=== PATIENT | female | born 1995 | race Caucasian/White ===

== ENCOUNTER → 2018-02-14 14:06 | Outpatient (CLI) | payer OTHER, BC, SELFPAY ==
[2018-02-14 14:55] LABS: Hematocrit 38.3 % (37-47); Hemoglobin 13.2 g/dl (12.0-15.0); Mean Corp Hgb Conc 34.5 g/gl (32-36); Mean Corpuscular Hgb 31.8 pg (27.0-32.0); Mean Corpuscular Volume 92.3 fL (81-99); Mean Platelet Vol. 9.3 fl (6.2-12.0); Platelet Count 224 K/mm3 (150-450); RBC Distribution Width CV 12.3 % (11.6-14.6); RBC Distribution Width SD 40.3 fl (35.1-43.9); Red Blood Count 4.15 M/mm3 (4.2-5.4); White Blood Count 7.9 K/mm3 (4.4-11.0)
[2018-02-14 14:57] LABS: Scan Indicated on CBC? Y/N NO
== END ==
PROVIDERS: Visit Provider Obstetrics & Gynecology
DX: R53.83 Other fatigue (principal)
CPT/HCPCS: 36415; 84443; 85027

== ENCOUNTER → 2018-09-13 17:57 | Outpatient (CLI) | payer OTHER, BC, SELFPAY ==
[2018-09-13 18:01] LABS: Mucous, Urine 0 SEEN /hpf (<or=2+)
[2018-09-13 18:11] LABS: Color, Urine Yellow (Yellow); Glucose, Dipstick Normal (Normal); Ketone-Dipstick Negative (Negative); Leukocyte Esterase-Dipstick 500 /ul (Negative); Nitrite-Dipstick Positive (Negative); Occult Blood-Urine 50 /ul (Negative); Protein-Dipstick Negative (Negative); Urine Clarity Sl. Cloudy (Clear); Urine Urobilinogen 4 mg/dl (Normal); Urine pH 6.5 (5.0 - 8.0)
[2018-09-13 18:16] LABS: Urine Bilirubin Dipstick 3 mg/dL (Negative)
[2018-09-13 18:23] LABS: Red Blood Cells-Urine 0-5 SEEN /hpf (0-5); Squamous Epithelial Cells - UA 0-5 SEEN /hpf (5-10); White Blood Cells 25-50 SEEN /hpf (0-5)
[2018-09-13 18:24] LABS: Bacteria RARE /hpf (None Seen)
== END ==
PROVIDERS: Referring Provider Physician Assistant Surgical; Visit Provider Physician Assistant Surgical
DX: R10.9 Unspecified abdominal pain (principal)
CPT/HCPCS: 81001; 87086; 87088

== ENCOUNTER → 2019-01-18 09:00 | Outpatient (CLI) | payer BC, SELFPAY ==
[2019-01-18 11:37] VITALS: BMI 28.4
[2019-01-20 08:44] LABS: Bacteria 0 SEEN /hpf (None Seen); Mucous, Urine 0 SEEN /hpf (<or=2+)
[2019-01-20 10:41] LABS: Color, Urine Yellow (Yellow); Glucose, Dipstick Normal (Normal); Ketone-Dipstick Negative (Negative); Leukocyte Esterase-Dipstick 25 /ul (Negative); Nitrite-Dipstick Positive (Negative); Occult Blood-Urine 25 /ul (Negative); Protein-Dipstick 15 mg/dl (Negative); Urine Clarity Sl. Cloudy (Clear); Urine Urobilinogen 8 mg/dl (Normal)
[2019-01-20 10:46] LABS: Urine Bilirubin Dipstick 3 mg/dL (Negative)
[2019-01-20 10:53] LABS: Red Blood Cells-Urine 0-5 SEEN /hpf (0-5); Squamous Epithelial Cells - UA 0-5 SEEN /hpf (5-10); White Blood Cells 0-5 SEEN /hpf (0-5)
== END ==
PROVIDERS: Referring Provider Physician Assistant; Visit Provider Physician Assistant
DX: R30.0 Dysuria (principal)
CPT/HCPCS: 81001; 87086; 87088

== ENCOUNTER → 2019-01-28 16:01 | Outpatient (CLI) | payer OTHER, BC, SELFPAY ==
[2019-01-18 11:37] VITALS: BMI 28.4
[2019-01-28 16:31] LABS: hCG Titer Quant., Serum 11 mIU/mL (<9 non-preg)
== END ==
PROVIDERS: Visit Provider Obstetrics & Gynecology
DX: O20.0 Threatened abortion (principal); N91.2 Amenorrhea, unspecified
CPT/HCPCS: 36415; 84702

== ENCOUNTER → 2019-02-28 15:13 | Outpatient (CLI) | payer OTHER, BC, SELFPAY ==
[2019-01-18 11:37] VITALS: BMI 28.4
[2019-02-28 16:37] LABS: Estradiol 35.2 pg/mL; Follicle Stimulating Hormone 6.1 mIU/mL; Free T3 2.3 pg/mL (2.18-3.98); Prolactin 14.3 ng/mL; T4 Free Direct 1.07 ng/dL (0.76-1.46); Thyroid Stim Hormone (TSH) 0.48 uIU/mL (0.358-3.74)
[2019-02-28 16:58] LABS: Progesterone Level 0.47 ng/mL (See Comment)
[2019-03-02 06:57] LABS: DHEA Sulfate 264.9 ug/dL (110.0-431.7)
[2019-03-11 17:50] LABS: 17-Hydroxyprogesterone 32 ng/dL (.)
== END ==
PROVIDERS: Visit Provider Obstetrics & Gynecology
DX: O02.81 Inappropriate change in quantitative human chorionic gonadotropin (hCG) in early pregnancy (principal); N96 Recurrent pregnancy loss
CPT/HCPCS: 36415; 82533; 82627; 82670; 83001; 83498; 84144; 84146; 84270; 84403; 84439; 84443; 84481; 82626

== ENCOUNTER → 2019-03-17 14:05 | Outpatient (CLI) | payer OTHER, BC, SELFPAY ==
[2019-01-18 11:37] VITALS: BMI 28.4
--- NOTE | 2019-03-17 14:09 | US_ITS ---
STUDY: ULTRASOUND TRANSVAGINAL CLINICAL: Female, 23 years old. PCOS TECHNIQUE: Transvaginal COMPARISON: None. FINDINGS: Normal uterine size measuring 7.1 x 5.5 x 3.5 cm in maximal craniocaudal dimension. There are no myometrial masses. Normal endometrial thickness measuring 9 mm. There are no endometrial masses, and there is no fluid in the endometrial cavity. Normal uterine cervix. Normal left ovary, measuring 2.4 x 1.3 x 1.4 cm. There are multiple follicles without a dominant cyst. Normal right ovary, measuring 4.1 x 2.3 x 3.8 cm. There are multiple follicles without a dominant cyst. There is mild free fluid in the pelvis. US/Pelvic (Non ) IMPRESSION: Mild pelvic fluid. Electronically Signed: Sean Powell DO at 22:48 EDT Tel [phone], Service support ,
--- NOTE | 2019-03-17 14:27 | US_ITS ---
STUDY: ULTRASOUND TRANSVAGINAL CLINICAL: Female, 23 years old. PCOS TECHNIQUE: Transvaginal COMPARISON: None. FINDINGS: Normal uterine size measuring 7.1 x 5.5 x 3.5 cm in maximal craniocaudal dimension. There are no myometrial masses. Normal endometrial thickness measuring 9 mm. There are no endometrial masses, and there is no fluid in the endometrial cavity. Normal uterine cervix. Normal left ovary, measuring 2.4 x 1.3 x 1.4 cm. There are multiple follicles without a dominant cyst. Normal right ovary, measuring 4.1 x 2.3 x 3.8 cm. There are multiple follicles without a dominant cyst. There is mild free fluid in the pelvis. US/Transvaginal Non- IMPRESSION: Mild pelvic fluid. Electronically Signed: Sean Powell DO at 22:48 EDT Tel [phone], Service support ,
[2019-03-17 15:48] LABS: Follicle Stimulating Hormone 3.5 mIU/mL; Luteinizing Hormone 12.9 mIU/mL
[2019-03-18 14:15] LABS: Estradiol 134.8 pg/mL
== END ==
PROVIDERS: Referring Provider Obstetrics & Gynecology; Visit Provider Obstetrics & Gynecology
DX: E28.2 Polycystic ovarian syndrome (principal); N96 Recurrent pregnancy loss
CPT/HCPCS: 36415; 76830; 76856; 82670; 83001; 83002; 84144; 84403; 93976

== ENCOUNTER → 2019-05-23 14:27 | Outpatient (CLI) | payer OTHER, BC, SELFPAY ==
[2019-01-18 11:37] VITALS: BMI 28.4
[2019-05-23 19:07] LABS: Chlamydia Trachomatis by PCR Negative (Negative); Neisserai gonorrhoeae by PCR Negative (Negative); Probe Check PASS; Sample Adequacy Control PASS; Specimen Processing Control PASS
[2019-06-02 15:16] LABS: HPV Reflexed? NOT INDICATED; HPV Rflx Negative
== END ==
PROVIDERS: Visit Provider Obstetrics & Gynecology
DX: Z12.4 Encounter for screening for malignant neoplasm of cervix (principal); Z11.3 Encounter for screening for infections with a predominantly sexual mode of transmission
CPT/HCPCS: 87491; 87591; 88175; G0145

== ENCOUNTER 2019-12-27 18:00 | Inpatient (IN) | payer OTHER, BC, SELFPAY ==
[2019-01-18 11:37] VITALS: BMI 28.4
[2019-12-27 16:13] VITALS: BMI 31.7
[2019-12-27] MEDS: Lactated Ringers 1,000 ML 200 ML IV ×2 (18:35→23:41)
[2019-12-27] MEDS: Lactated Ringers 500 ML 999 ML IV (18:39)
[2019-12-27 18:56] LABS: Absolute Lymphocyte Count 1.02 X10^3/uL (0.83-4.51); Absolute Neutrophil Count 9.3 X10^3/uL (2.0-7.7); Basophil# 0.02 X10^3/uL; Basophil% 0.2 % (0-1); Eosinophil# 0.02 X10^3/uL; Eosinophils% 0.2 % (0-5); Hematocrit 35.3 % (37-47); Hemoglobin 11.2 g/dL (12.0-15.0); Lymphocyte # 1.02 X10^3/ul (4.0); Lymphocyte % 9.1 % (19-41); Mean Corp Hgb Conc 31.7 g/dL (32-36); Mean Corpuscular Hgb 27.5 pg (27.0-32.0); Mean Corpuscular Volume 86.5 fL (81-99); Monocyte# 0.68 X10^3/uL; Monocyte% 6.1 % (0-10); NRBC Flagged by Analyzer 0 % (0-5); Neutrophil # 9.34 X10^3/uL (2.7-7.7); Neutrophil % 83.7 % (47-70); Platelet Count 222 K/mm3 (150-450); RBC Distribution Width CV 13.8 % (11.6-14.6); RBC Distribution Width SD 42.8 fl (35.1-43.9); Red Blood Count 4.08 M/mm3 (4.2-5.4); White Blood Count 11.2 K/mm3 (4.4-11.0)
[2019-12-27] MEDS: Ondansetron 4 MG/2 ML Vial IV (20:09)
[2019-12-27] MEDS: 0.9% Saline Lock 10 ML Syringe IV (20:09)
[2019-12-27] MEDS: fentaNYL-bupivacaine (epidural) 100 ML BAG EPIDURAL (21:02)
--- NOTE | 2019-12-28 00:21 | HP.PCM_ITS ---
History and Physical Date of Ad[place]: 12[place]27/[place] [facility] [facility] [place] - H[place]ORY AND PHYSICAL (12/28/2019) Name: ANUEL FRANKLIN OB Physician: HANH 's Physician: UNDECIDED ...................................................................... : 1995 Age: 24 Address: [address] [place] [address] Phone: H) [phone] (O) [phone] Insurance Carrier: [employer] [id number] Emergency Contact: ASHANTI SANTOS [phone] ...................................................................... Anuel is a 24yo at 39w4d gestation by L=12w2d US who presented to L&D yesterday afternoon c/o contractions. She states that they woke her up yesterday morning around 8:00 AM occurring approximately every 7-10 minutes; she continued to labor at home until they were about 5 minutes apart, and then proceeded to the hospital. After a two-hour triage period her cervix changed from 3.5/80/-2 to 4.0/80/- per RN exam and she was emily every 4-5 minutes; she was admitted to L&D and started on prophylactic antibiotics for positive group B status; she has continued to labor spontaneously over the afternoon and evening. She experienced SROM for clear fluid at 2105 last evening; She is currently comfortable with an epidural,and was 9.5/90/0 by RN exam at 2308 last evening. She reports mild pressure with contractions, none between. FHTs have been Cat 1 and 2 throughout labor and reassuring. Patient has a history of two early trimester losses and was on Prometrium during the first trimester of this . She has a history of depression and gestational hyperthyroidism. Her blood type is A positive, and has NKA. Final KENDRA: 12/31/19 By Ultrasound: PARITY: (G-Total Pregnancies P-Fullterm,Premature,Induced AB,Spont AB, Ectopics, Multiple,Living) KENDRA CONFIRMATION: By LMP: 03/26/19 Final KENDRA: 12/31/19 OB PROBLEM LIST: 2 SAB's early 2018 Concerned about pp depression, as her mother experienced this, and pt has a hx of depression Declines msAFP and CF testing EPDS = 12 Epidural planned Gestational hyperthyroidism Office and childbirth classes discussed. ALLERGIES: No Known Allergies MEDICATIONS: 28 mg-800 mcg tablet 1 PO QD Prometrium 100 mg capsule two po q hs until 12 wk EGA selenium 200 mcg tablet As Directed SOCIAL HISTORY: Smoking - Never Alcohol Use - drinks occasionally Diet - balanced Diet Lifestyle - Exercise - active Employer - [employer] Job Description - part time receptionist Illicit Drug Use - denies use of street drugs Sexual Activity - Residence - lives with Place of - [place], [place] Hours Worked - 40 Spouse-Sig Other Name - Kael Spouse-Sig Other Occupation - [employer] Spouse-Sig Other Phone No - [phone] PRIOR DELIVERY HISTORY DEL DATE GEST LAB WT LB WT OZ TYPE ANES LABOR TX 01 Dec 19 5 0 0 0 Sab None No 11 Jan 19 8 0 0 0 Sab None No ANTEPARTUM FLOW CHART VISIT GE RTC FU F F MN U U DATE WK MD WKS HT PN HR M SS BP ED WT MN GL D EF ST __ ____ ___ __ __ ___ __ __ __ ___ __ __ __ ___ __ 04 Dec CH 1 38 V + + 130/76 1+ 191 tr - cl TH hi Nov KW 1 38 V + + 126/78 1+ 195 - - ft hi Nov KW 1 36 + + 100/80 1+ 192 - - Nov CH 1 36 V + + 100/76 0 190 - - Nov SHM 1 35 V + + 110/60 0 187 - - Oct SHM 2 31 V + + 120/78 1+ 185 - - Nov 17 SHM 2 29 ? + + 122/72 sl 182 - - Oct 16 SHM 2 28 ? + + 120/70 0 177 tr - Sep 11 SHM 4 24 ? + + 128/54 0 173 - - Aug 08 SHM 4 20 + 0 106/70 0 169 - - Jul 04 SHM 4 + + 110/80 0 164 - - 02 Jun 30 SHM 4 12 + 0 126/80 0 161 - - ANTEPARTUM NOTE(S): Dec 23 2019: reviewed FM, SROM, and labor Dec 17 2019: Feeling well Dec 11 2019: feeling well. Dec 03 2019: feeling well. GBS today. Nov 26 2020: see note Nov 05 2019: none Oct 22 2019: Oct 08 2019: GCT done today Sep 10 2019: see prog note Aug 15 2019: doiing well, comp u/s today Jul 16 2019: feeling some anxiety and sadness. Jun 20 2019: tolerable nausea, NOB and u/s today COMPREHENSIVE ANTEPARTUM NOTE(S): Dec 23 2019: Routine PNV. FM+. FHR 148. Wishes to have SVE today and membrane sweeping if possible. SVE still unchanged and unable to sweep. Wants elective IOL at 40 weeks. To call with regular UC every 5 minutes for 1 hour or with ROM, bleeding or decreased FM. To return in 1 week for routine PNV. - Dec 17 2019: Anuel reporting good FM. GBS positive. She has been reading on line and is now worried baby can get this thru . Reviewed this was a vaginal culture and she will be given ABX in labor to take care of this. Baby will not be affected and baby will not get this with nursing. Began having short runs of ctx's over this past weekend, but none today. No leaking fluid. No spotting. She is also asking about taking probiotics and advised YES ok to take. Recommendations for probiotic given. kb Dec 17 2019: Feeeling well; reports active FM; denies UCs, VB, LOF; VE per patient request ft/th /hi , soft, posterior; discussed safety measures, warning signs, s/s Labor, when to call/come in; RTO 1 week for PNV - KVW Dec 12 2019: Feeling well; reports active FM; denies UCs, VB, LOF; GBS positive, discussed implications of this today, timing of arrival to L in labor and receivin antibiotic therapy; discussed warning signs, s/s Labor, when to call/come in; RTO 1 week for PNV - KVW Dec 08 2019: H taken to OB. tkg Dec 03 2019: Routine PNV. Reports +FM. FHR 142. GBS collected today. Has no other questions or concerns. Talked about membrane sweeping after 38 weeks because wants to avoid induction, but doesnt want to go past 40 weeks. Discussed still elective IOL at that point and would need cervical check to determine what IOL would look like. Discussed CNM care and okay with delivery. Wants to meet KW at next visit. Reviewed to call for decreased FM, ROM, bleeding or regular UC. Will start weekly visits, to return in 1 week. - Nov 26 2019: Anuel is here for visit. She relates that she area on labia that becomes larger and sore for the last couple months. She feels that it is less bothersome today. She is due next week for GBS and will evaluate then if desires or can have Dr POLANCO look at it today. Declines exam since not too bothersome today and pelvic exam for next week. She is encouraged to consider Influenza and Tdap vaccines. She will research and consider. FM, SROM, and labor reviewed. LMT Nov 05 2019: Anuel is here for an OB visit. She has some edema in hands and feet. BP 120/78 and urine came back as --. Good movement. MLK Nov 05 2019: PTL, FM precautions. Discussed Peds selection, preeclampsia precautions. Oct 22 2019: Anuel is doing well. Good FM. Slight edema in hands -- has to remove her rings w/lotion. Cautioned if this becomes harder, to just take them off, so she can avoid having them cut off. kbm Oct 08 2019: Encouraged Tdap and Influenza vaccine. Reviewed FM, PROM, and PTL. Feeling well and no complaints. LMT Oct 08 2019: PTL, ROM, FM precautions. Plans NuvaRing . Sep 10 2019: Anuel is here today for her visit. Patient states that she has been having mild cramping. She states that she thinks maybe they are drew wilhelm contractions or round ligament pain. Reviewed both. She states sometimes she notes the cramping when she urinates. Long dip done in office leuk, nitrite, urobilinogen, and protein-neg, pH-5, blood-neg, sp gravity-1005, ketones, bilirubin and glucose-neg. jlb Sep 10 2019: Discussed Trenton Wilhelm, labor analgesia. Aug 15 2019: Anxiety improved with relaxation breathing techniques, exercise. Will continue to monitor. Drew Wilhelm with full bladder. Pt reassured. Anatomy scan wnl, FEMALE. Jun 25 2019: Rh positive, Rubella immune Jun 20 2019: US c/w dates, KENDRA 12/31/18. d/c prometrium this week. Reviewed labs for draw. Jun 20 2019: Anuel is here at 12 w 2 d for her NOB visit, she is a A2 with an KENDRA of 12/31/2019. She is accompanied today by her , Kael, and they both seem pleased to have had the US and to have heard the heart beat. Anuel has had two early SAB's in December and January of 2019, and states that she feels relieved to have had US today. Past history updated. Delivery at [facility] is planned, with an epidural, and she will breastfeed. Office childbirth ed and classes discussed and encouraged; they seem receptive to both. Anuel has been taking Prometrium, and will d/c this as discussed today with Dr. Gwyn Lazaro. She reports nausea, and morning emesis most days, but feels that NVP are starting to improve. Reviewed measures that m ay help minimize nausea, including small frequent meals with protein included throughout the day, adequate water hydration of at least one gallon per 24 hours, Unisom at bedtime, Vitamin B6 50 mg twice a day, and trying carb rich foods right away in the morning. She takes and tolerates well an OTC vitamin that contains DHA. Office practice patterns reviewed, including labs that will be collected today. Contacting the office after hours, danger signs/emergencies to report, round ligament ain, reporting s/s of a UTI, and common OTC medications approved/not approved for use during reviewed. Anuel is a life long non-smoker, and denies use of drugs or ETOH. Genetic Screening form completed. She declines msAFP and CF testing, consent signed a such. Anuel shares a hx of depression/anxiety, and that she had been on medication for depression; she states that she feels that she is doing well without medication at this time. EPDS = 12. Discussed that if she feels that she needs more help with depression/anxiety, that she should feel free to call the office; she states that she understands and will do this as needed. Anuel states that her biggest stressor right now is work, but she does well with stress while not at work. She shares a concern that since her mother experienced pp depression, that she will as well; she will discuss this concern with Dr. Gwyn Lazaro as she gets closer to her KENDRA. Anuel states that she eats a generally well balanced diet when not nauseated, and has been working on increasing her water intake. Water and dietary needs reinforced, including recommended weight agin, caloric needs, limiting empty calories, and limiting caffeine to one cup a day. Printed guide for food safety provided with review. She walks her dog every day and plans to continue to do this. Kegel exercises reviewed. Lifting restrictions discussed. Anuel states that she understands all information provided during the NOB visit, and states that she has no questions following same. To [facility] draw station for labs. AW May 24 2019: GC, chlamydia NEG. EB May 23 2019: Anuel is here for missed menses appt. She reports LMP 5/8, +UPT today in office, approx EDC 12/31/19. She is taking PNV and Prometrium. Feeling tired, mild nausea, and constipation. Reviewed all OTC meds to help with these minor discomforts. Educational materials are provided and reviewed. Discussed increased po fluids, adding approx 300 extra calories per day, and 30 minutes of exercise at least 5 times per week. Hx of 2 early SAB and taking Prometrium as prescribed. Pap and cultures will be done today. LMT Apr 04 2019: Anuel is here today for her follow up appointment. . Patient with h/o 2 SAB and attempting . Patient has labs done 02/28/2019, and 03/17/2019 with u/s same day. Patient is here to review lab results in correlation to u/s. Patient states that lmp is 03/26/2019. jlb Feb 28 2019: Anuel presents here today as follow-up for attempting as previously followed by Olivier. 23 y.o. G 2 P 0 AB 2 non-smoker with regular menses and LMP of 02-25-19 lasting approximately 7 days. Reports [facility] had told her to call with start of her next menses and have labs drawn, as well as track her temperature and cervical mucous. Denies new breakfast hostess concerns at this time. Medication list up-dated. TL Feb 11 2019: Anuel is here today for follow up appointment as she is concerned that she has had tow miscarriages in the past two months. Patient states that she had positive upt's at home and then came in for SPT in office when she started with bleeding. Patient's most recent SAB was 01/27/2019. Patient denies any bleeding today. H/o irregular menses. jlb REVIEW OF SYSTEMS: GENERAL - Denies fever, or chills SKIN - Denies rash, new skin lesions, or change in moles EYES - Denies blurred vision, or change in visual acuity EARS - Denies ear pain, or difficulty hearing NOSE - Denies nasal congestion, discharge, or bleeding MOUTH - Denies sore throat, or difficulty swallowing NECK - Denies pain or swelling RESPIRATORY - Denies shortness of breath, cough, wheezing CARDIOVASCULAR - Denies palpitations, chest pain, orthopnea, PND, peripheral edema, syncope or claudication GASTROINTESTINAL - Denies nausea, vomiting, diarrhea, constipation, Denies abdominal pain, melena and or bright red blood GENITOURINARY - Denies dysuria, frequency of urination, urgency, or hesitancy MUSCULOSKELETAL - Denies joint or muscle pain, or back pain NEUROLOGICAL - Denies localized numbness, weakness, or tingling PSYCHIATRIC - Denies depression, anxiety, substance abuse or suicide attempts ENDOCRINE - Denies heat or cold intolerance, weight loss or gain, increasing thirst HEMATO-IMMUNOLOGIC - Denies easy bruising, bleeding, oral ulcerations or recurrent infections GENETICS SCREENING: Age 35+ years: No Thalassemia: No Neural Tube Defect: No Down Syndrome: No CIARA-SACHS: No Sickle Cell Disease: No Hemophilia: No Musc. Dystrophy: No Cystic Fibrosis: No-declines screening [place] Chorea: No Mental Retardation: No Fragile X: No Other genetic: No Other defects: No SABs/still births: No Drugs since LMP: No INFECTION HISTORY: High risk AIDS: No High risk Hepatitis: No Exposed to TB: No Exposed to Herpes: No Rash/viral illness since LMP: No History of STD: No MENSTRUAL HISTORY: *Menses Amount/Duration: 7 daysMenses Regularity: irregularFrequency: monthlyMenarche (Age Onset): 12* PAST SUMMARY: PARITY: 1. Total Pregnancies............ 3 2. Full Term Pregnancies........ 0 3. Premature.................... 0 4. Abortions - Induced.......... 0 5. Abortions - Spontaneous...... 2 6. Ectopics..................... 0 7. Multiple Births.............. 0 8. Living Children.............. 0 PAST #1: Date of :.................. 12/20/18 Gestation Weeks:................ 5 Length of labor(hours):......... 0 Sex:............................ Weight-lbs:............... 0 Weight-oz:................ 0 Type of Delivery:............... Sab Type of Anesthesia:............. None Place of Delivery:.............. none Treatment of Labor?:.... No Comment: DATE APPROX, NO D+C PAST #2: Date of :.................. 01/27/19 Gestation Weeks:................ 8 Length of labor(hours):......... 0 Sex:............................ Weight-lbs:............... 0 Weight-oz:................ 0 Type of Delivery:............... Sab Type of Anesthesia:............. None Place of Delivery:.............. none Treatment of Labor?:.... No Comment: NO D+C Labs for : ANUEL FRANKLIN since 04/05/2019 ORDER DATEIN DESCRIPTION VALUE UNITS RANGE A+ COMMENT STREP GP B NOELLE 12/03/19 STREP GP B NOELLE Positive Negative A Centers for Disease Control and Prevention (CDC) and [place] Congress of Obstetricians and Gynecologists (ACOG) guidelines for prevention of group B streptococcal (GBS) disease specify co-collection of a vaginal and rectal swab specimen to maximize sensitivity of GBS detection. Per the CDC and ACOG, swabbing both the lower vagina and rectum substantially increases the yield of detection compared with sampling the vagina alone. . Penicillin G, ampicillin, or cefazolin are indicated for intrapartum prophylaxis of GBS colonization. Reflex susceptibility testing should be performed prior to use of clindamycin only on GBS isolates from penicillin-allergic women who are considered a high risk for anaphylaxis. Treatment with vancomycin without additional testing is warranted if resistance to clindamycin is noted. Reviewed by KATIE JACOB. DIABETES 1-HR SCREEN 10/08/19 GESTATIONAL DIABETES SCREEN 92 mg/dL 65-139 According to ADA, a glucose threshold of >139 mg/dL after 50-gram load identifies approximately 80% of women with gestational diabetes mellitus, while the sensitivity is further increased to approximately 90% by a threshold of >129 mg/dL. CBC WITH DIFFERENTIAL/PLATELET 10/08/19 WBC 11.6 x10E3/uL 3.4-10.8 H RBC 3.72 x10E6/uL 3.77-5.28 L HEMOGLOBIN 11.8 g/dL 11.1-15.9 HEMATOCRIT 34.5 % 34.0-46.6 MCV 93 fL 79-97 MCH 31.7 pg 26.6-33.0 MCHC 34.2 g/dL 31.5-35.7 RDW 12.3 % 12.3-15.4 PLATELETS 233 x10E3/uL 150-450 NEUTROPHILS 78 % Not Estab. LYMPHS 12 % Not Estab. MONOCYTES 8 % Not Estab. EOS 1 % Not Estab. BASOS 0 % Not Estab. IMMATURE CELLS NEUTROPHILS (ABSOLUTE) 9.1 x10E3/uL 1.4-7.0 H LYMPHS (ABSOLUTE) 1.4 x10E3/uL 0.7-3.1 MONOCYTES(ABSOLUTE) 0.9 x10E3/uL 0.1-0.9 EOS (ABSOLUTE) 0.1 x10E3/uL 0.0-0.4 BASO (ABSOLUTE) 0.0 x10E3/uL 0.0-0.2 IMMATURE GRANULOCYTES 1 % Not Estab. IMMATURE GRANS (ABS) 0.1 x10E3/uL 0.0-0.1 NRBC HEMATOLOGY COMMENTS: Reviewed by KATIE WRITTEN AUTHORIZATION 06/20/19 WRITTEN AUTHORIZATION Written Authorization Received. Authorization received from SIGNATURE ON FILE 06-26-2019 Logged by Myrna Brown TRIIODOTHYRONINE (T3), FREE 06/20/19 TRIIODOTHYRONINE (T3), FREE 3.7 pg/mL 2.0- 4.4 THYROXINE (T4) FREE, DIRECT, S 06/20/19 T4,FREE(DIRECT) 1.36 ng/dL 0.82-1.77 Reviewed by KATIE VITAMIN D, 25-HYDROXY 06/20/19 VITAMIN D, 25-HYDROXY 31.2 ng/mL 30.0-100.0 Vitamin D deficiency has been defined by the [place] of [employer] and an Endocrine Society practice guideline as a level of serum 25-OH vitamin D less than 20 ng/mL (1,2). The Endocrine Society went on to further define vitamin D insufficiency as a level between 21 and 29 ng/mL (2). 1. IOM ([place] of [employer]). 2010. Dietary reference intakes for calcium and D. [place]: The National Academies Press. 2. Saad MF, Matias NC, Brittni CRAMER, et al. Evaluation, treatment, and prevention of vitamin D deficiency: an Endocrine Society clinical practice guideline. JCEM. 2010; 96(4):1911-30. HCV ANTIBODY 06/20/19 HEP C VIRUS AB <0.1 s/co ratio 0.0-0.9 Negative: < 0.8 Indeterminate: 0.8 - 0.9 Positive: > 0.9 . The CDC recommends that a positive HCV antibody result be followed up with a HCV Nucleic Acid Amplification test (917307). CBC/D/PLT+RPR+UA+RH+ABO+RUB... 06/20/19 TSH 0.242 uIU/mL 0.450-4.500 L HBSAG SCREEN Negative Negative RPR Non Reactive Non Reactive RUBELLA ANTIBODIES, IGG 4.77 index Immune >0.99 Non-immune <0.90 Equivocal 0.90 - 0.99 Immune >0.99 ABO GROUPING A RH FACTOR Positive Please note: Prior records for this patient's ABO / Rh type are not available for additional verification. ANTIBODY SCREEN Negative Negative HIV SCREEN 4TH GENERATION WRFX Non Reactive Non Reactive WBC 8.9 x10E3/uL 3.4-10.8 RBC 4.22 x10E6/uL 3.77-5.28 HEMOGLOBIN 13.1 g/dL 11.1-15.9 HEMATOCRIT 37.8 % 34.0-46.6 MCV 90 fL 79-97 MCH 31.0 pg 26.6-33.0 MCHC 34.7 g/dL 31.5-35.7 RDW 13.1 % 12.3-15.4 PLATELETS 273 x10E3/uL 150-450 NEUTROPHILS 68 % Not Estab. LYMPHS 21 % Not Estab. MONOCYTES 10 % Not Estab. EOS 1 % Not Estab. BASOS 0 % Not Estab. NEUTROPHILS (ABSOLUTE) 6.1 x10E3/uL 1.4-7.0 LYMPHS (ABSOLUTE) 1.8 x10E3/uL 0.7-3.1 MONOCYTES(ABSOLUTE) 0.9 x10E3/uL 0.1-0.9 EOS (ABSOLUTE)w 0.1 x10E3/uL 0.0-0.4 BASO (ABSOLUTE) 0.0 x10E3/uL 0.0-0.2 IMMATURE GRANULOCYTES 0 % Not Estab. IMMATURE GRANS (ABS) 0.0 x10E3/uL 0.0-0.1 SPECIFIC GRAVITY 1.005 1.005-1.030 PH 6.0 5.0-7.5 URINE-COLOR Yellow Yellow APPEARANCE Clear Clear WBC ESTERASE Negative Negative PROTEIN Negative Negative/Trace GLUCOSE Negative Negative KETONES Negativew Negative OCCULT BLOOD Negative Negative BILIRUBIN Negative Negative UROBILINOGEN,SEMI-QN 0.2 mg/dL 0.2-1.0 NITRITE, URINE Negative Negative MICROSCOPIC EXAMINATION Microscopic not indicated and not performed. [id number] 7+ALC-UNBUND 06/20/19 AMPHETAMINES, URINE Negative ng/mL Jrvrpg=4257 Amphetamine test includes Amphetamine and Methamphetamine. BARBITURATE Negative ng/mL Nfsqpu=238 BENZODIAZEPINES Negative ng/mL Rhjsqn=444 CANNABINOID Negative ng/mL Cutoff=50 COCAINE (METAB.) Negative ng/mL Zdgyfm=913 OPIATES Negative ng/mL Greirt=243 Opiate test includes Codeine and Morphine only. PHENCYCLIDINE Negative ng/mL Cutoff=25 ETHANOL, URINE Negative % Cutoff=0.020 Reviewed by KATIE CBC/D/PLT+RPR+UA+RH+ABO+RUB... 06/20/19 IMMATURE CELLS NRBC HEMATOLOGY COMMENTS: Reviewed by KATIE HPV RFLX 05/23/19 NOTE Original Ordering Provider: Hemalatha Freitas HPV RFLX Negative Reviewed by HEMALATHA PAP TEST I-G 05/23/19 NOTE Original Ordering Provider: Hemalatha Freitas DIAGN . NEGATIVE FOR INTRAEPITHELIAL LESION OR MALIGNANCY. ADEQ . Satisfactory for evaluation. Endocervical and/or squamous metaplastic cells (endocervical component) are present. PERFORM . Mariama Hickey Baller Tender (ASCP) TEST METHOD . This liquid based ThinPrep(R) pap test was screened with the use of an image guided system. COMM . . PAPSMR . The Pap smear is a screening test designed to aid in the detection of premalignant and malignant conditions of the uterine cervix. It is not a diagnostic procedure and should not be used as the sole means of detecting cervical cancer. Both false-positive and false-negative reports do occur. Reviewed by HEMALATHA SHAFFER/CINTHIA [facility] BY PCR 05/23/19 NOTE Original Ordering Provider: Hemalatha CROCKETTAM [facility] PCR Negative Negative NG BY PCR Negative Negative Reviewed by LIZZ PROVIDER SIGNATURE ( REQUIRED) PHYSICAL EXAMINATION General Appearence: 24 yo female in no acute distress Vital Signs: AF, VSS Heart: RRR without rubs or gallops Lungs: CTA x 2 Breasts: deferred Abdomen: gravid Pelvis: Cervix: 9.5/90/0 by RN exam at 2308 12/27/19 Presentation: cephalic Fetus: Size: AGA Movement: present Heart: 125 baseline, minimal to moderate variability, +accelerations, occasional variable decelerations Impression: 24yo at 39w4d gestation by L=12w2d US Gestational hyperthyroidism Group B positive A Positive Cat 2 FHTs Plan: Continue to labor down Continue GBS prophylaxis Anticipate vaginal delivery
[2019-12-28] MEDS: Mag Hydrox/Al Hydrox/Simeth 30 ML UDC PO (00:24)
[2019-12-28] MEDS: fentaNYL-bupivacaine (epidural) 100 ML BAG EPIDURAL (01:09)
[2019-12-28] MEDS: Oxytocin 30 units/NS 500 ml 30 UNITS/500 ML IV.SOLN 999 UNITS IV (02:35)
--- NOTE | 2019-12-28 04:16 | OP.PCM_ITS ---
Vaginal Delivery Maternal Presentation: Active Labor Pt presented to L&D in active labor yesterday afternoon after laboring at home Amniotic Membrane Rupture Type: Spontaneous Rupture of Membrane time: 210412/27/19 Amniotic Fluid Description: Clear Final KENDRA Source: US <20 weeks Date of Procedure: 12/28/19 Pre-Operative Diagnosis: Labor Post-Operative Diagnosis: Surgery/ Procedure Performed: Spontaneous Vaginal Delivery Type of Anesthesia: Epidural Description of Procedure: CTSP when she was C/C/+2; pushed well and delivered a vigorous female over a 2nd degree perineal laceration; nuchal cord x 1 noted, shoulders delivered through; as body was delivered, cord was noted to be wrapped around abdomen x 1 and right thigh x 1; cord unwrapped from around infant, placed on maternal abdomen, dried, stimulated and bulb suctioned, APGARs 9/9; after a 60 second delay, cord was clamped x 2, and cut by FOB under CNM supervision; placenta delivered spontaneously, Pugh mechanism, intact, 3- vessel cord, central insertion; 2nd degree perineal laceration repaired with 3-0 Vicryl, good hemostasis obtained; EBL 200 Lap sponge, raytec, instrument and sharp counts correct x 2 with RN Presentation: Vertex, JIM Placental Delivery Description: Spontaneous Placenta Disposition: [facility] Cord Vessel Description: 3 Vessels Cord Entanglement: Around neck x 1, tight - around neck x 1, tight, around abdomen, around r leg Estimated Blood Loss: 200 Infant A gender: Male Episiotomy Description: None Laceration: Midline, Perineal Extension/lac, 2nd degree Medications given after delivery: IV Pitocin
--- NOTE | 2019-12-28 04:42 | DCINST_ITS ---
Discharge Diet: No Restrictions Discharge Activity: Return to Normal Activity, No Restrictions Return to work on:: 02/07/20 May resume sexual activity in: 6-8 weeks Weight Bearing Status: Weight bearing as tolerated Lifting Restrictions: Nothing heavier than the baby for two weeks Additional Activity Instructions:: Minimize cooking, cleaning, shopping or long car trips for two weeks; try to get at least 8 hours sleep in 24 hours for the first two weeks; sleep when the baby sleeps Call your doctor if you observe: Fever of 101 or Higher, Inability to urinate, Inability to have a bowel movement, Using more than one pad per hour, Shortness of breath, Dizziness, Chest pain, Increased palpitations (irregular heartbeat), Calf discomfort, Uncontrolled pain Additional Instructions: If you experience any of the following, contact your healthcare provider. * Bleeding that soaks a pad every hour for 2 hours * Fever 100.4 or higher * Unrelieved incision or abdominal pain * Swelling, redness, discharge or bleeding from your incision or episiotomy site * Your incision begins to separate * Problems urinating (including inability to urinate or burning while urinating). * Visual changes * Severe headache * Flu-like symptoms * Pain or redness in one of both of your breasts * Pain, warmth, tenderness or swelling in your legs, especially the calf area * Frequent nausea and vomiting * Symptoms of depression or anxiety If you experience any of the following, call 911 or go to the nearest Emergency Room. * Chest pain * Problems breathing * Seizure activity * Partial or complete paralysis of a body part, slurred speech, weakness or drooping of the face, or a sudden inability to walk or hold your balance Allergies/Adverse Reactions: Allergies No Known Allergies Allergy (Verified 12/27/19 16:14) Medications to take at Discharge Vits [Prenatabs FA ] 12/27/19 Selenium 12/27/19 Ferrous Sulfate 325 mg PO DAILY #30 tab 12/29/19 The following prescriptions were given: Ferrous Sulfate 325 mg PO DAILY #30 tab Transmission Status: Received by [id number] Please Follow Up With: Kaylynn Dejesus CNM When: in 6 weeks for your checkup Primary Care Physician: Care Physician,No Primary [Primary Care Provider] - Test Results: Test results from this visit will be discussed in further detail at your follow- up appointment, if applicable.
[2019-12-28 08:01] VITALS: BP 98/60; PULSE 94; RESP 16; TEMP 36.9; O2SAT 97
[2019-12-28] MEDS: Ibuprofen 600 MG Tablet PO ×2 (08:38→14:42)
[2019-12-28] MEDS: Acetaminophen 500 MG Tablet 1000 MG PO (10:52)
[2019-12-28] MEDS: Dibucaine 30 GM Tube 1 APPLIC TOPICAL (10:52)
[2019-12-28] MEDS: Senna/Docusate Sodium 1 Tablet PO (10:52)
[2019-12-28 12:09] VITALS: BP 111/66; PULSE 88; RESP 16; TEMP 36.8
[2019-12-28 17:08] VITALS: BP 118/73; PULSE 70; RESP 16; TEMP 36.9
[2019-12-28 20:50] VITALS: BP 113/64; PULSE 82; RESP 18; TEMP 36.4
[2019-12-29 00:10] VITALS: BP 113/74; PULSE 79; RESP 18; TEMP 36.4
[2019-12-29] MEDS: Ibuprofen 600 MG Tablet PO ×2 (00:28→08:40)
[2019-12-29 03:01] VITALS: BP 106/73; PULSE 71; RESP 18; TEMP 36.2
[2019-12-29 07:18] LABS: Hematocrit 29.6 % (37-47); Hemoglobin 9.3 g/dL (12.0-15.0); Mean Corp Hgb Conc 31.4 g/dL (32-36); Mean Corpuscular Hgb 27.7 pg (27.0-32.0); Mean Corpuscular Volume 88.1 fL (81-99); Mean Platelet Vol. 9.7 fl (6.2-12.0); Platelet Count 181 K/mm3 (150-450); RBC Distribution Width CV 13.9 % (11.6-14.6); RBC Distribution Width SD 43.7 fl (35.1-43.9); Red Blood Count 3.36 M/mm3 (4.2-5.4); White Blood Count 10.6 K/mm3 (4.4-11.0)
[2019-12-29 07:40] VITALS: BP 116/70; PULSE 78; RESP 18; TEMP 36.5
--- NOTE | 2019-12-29 08:13 | NURSING ---
Pt reports feelings of anxiety. Also reports her mother had PPD. Will discuss with marriage and family social worker.
--- NOTE | 2019-12-29 08:29 | PCM.PN.OB ---
Subjective: Pain well controlled, tolerating diet, passing flatus; well; spouse bedside and supportive; considering Rabia for contraception Objective: AVSS Breasts filling, nipples atraumatic Fundus firm, midline, u/1, lochia small 2nd degree perineal laceration well, approximated, minimal edema, no drainage, ecchymosis or erythema noted - Physical Exam Vitals/I&O's: Vital Signs Temp Pulse Resp BP Pulse Ox 97.7 F L 78 18 116/70 97 12/29/19 07:40 12/29/19 07:40 12/29/19 07:40 12/29/19 07:40 12/28/19 08:01 Oxygen Delivery Method Room Air Weight: 190 lb 11.198 oz Body Mass Index (BMI) 31.7 Intake and Output for Last 24 Hours 12/27/19 12/28/19 12/29/19 23:59 23:59 23:59 Intake Total 1521.66 / 1521.66 2330.00 / 2330.00 Output Total 2750 / 2750 Balance 1521.66 / 1521.66 -420.00 / -420.00 General: Alert, Oriented x3, Cooperative, No apparent distress HEENT: PERRLA, EOMI Oral: Moist Mucosa Neck: Supple Lungs: Clear to auscultation, Normal air movement Cardiovascular: Regular rate, Regular Rhythm Abdomen: Bowel Sounds Present, Soft, Non Tender, Non-Distended, Passing Flatus Extremities: No edema, Capillary Refill Less than 3 Seconds, No Calf Tenderness Skin: No rashes Musculoskeletal: No Tenderness to Palpation of Joints or Extremities Neurological: Cranial nerves II-XII grossly intact, Deep Tendon Reflexes 2+/4 and Symmetrical, Neuro grossly intact Psych/Mental Status: Normal Affect, Appropriate Laboratory Results 12/29/19 07:00: WBC 10.6, RBC 3.36 L, Hgb 9.3 L, Hct 29.6 L, MCV 88.1, MCH 27.7, MCHC 31.4 L, RDW Std Deviation 43.7, RDW Coeff of Mateusz 13.9, Plt Count 181, MPV 9.7 Current Medications Acetaminophen (Tylenol) 1,000 mg PO Q8H PRN PRN PRN Reason: Pain Score 1-3/ Last Admin: 12/28/19 10:52 Dose: 1,000 mg Documented by: Bisacodyl (Dulcolax) 10 mg RECTAL UD PRN PRN Reason: If no BM Dibucaine (Dibucaine) 1 applic TOPICAL TID PRN PRN; Protocol PRN Reason: Discomfort Last Admin: 12/28/19 10:52 Dose: 1 applic Documented by: Hydrocortisone (Hytone) 1 applic TOPICAL TID PRN PRN; Protocol PRN Reason: Discomfort Ibuprofen (Motrin) 600 mg PO Q6H PRN PRN PRN Reason: Pain Score 1-3/10 Last Admin: 12/29/19 00:28 Dose: 600 mg Documented by: Influenza Virus Vaccine Quadrival (Flucelvax /Fluzone ) 0.5 ml IM .ONCE ONE Stop: 12/29/19 10:01 Methylergonovine Maleate (Methergine) 0.2 mg IM X1 PRN PRN Reason: Excess bleeding/uterine atony Senna/Docusate Sodium (Senokot-S, Tessa-Colace) 1 - 2 tablet PO DAILY PRN PRN PRN Reason: Constipation Last Admin: 12/28/19 10:52 Dose: 1 tablet Documented by: Simethicone (Mylicon) 80 mg PO PCHS PRN PRN Reason: Indigestion/Stomach pain Medical Necessity - Tobacco Use Smoking Status: Never smoker Assessment/Plan All Active Problems (Last Reviewed 01/18/19 @ 11:37 by [place] Anthony) Cystitis (Acute) Assessment: 24yo G3 now [id number] delivered via at 39w4d gestation by L=12w2d US day #1, normal involution, normal course Mild anemia Plan: Discharge teaching completed Ferrous Sulfate, 325mg 1 PO dailuy Discharge home today if desired RTO 6 weeks for checkup
[2019-12-29] MEDS: Senna/Docusate Sodium 1 Tablet PO (08:40)
[2019-12-29 15:00] VITALS: BP 113/69; PULSE 69; RESP 18; TEMP 36.6
== END 2019-12-29 17:25 | disposition home or self-care (01) | DRG 807 ==
LOC: WPOUT 18:07 → WP 18:07
PROVIDERS: Admitting Provider Advanced Practice Midwife; Visit Provider Advanced Practice Midwife
DX: O99.824 Streptococcus B carrier state complicating childbirth (principal); O99.284 Endocrine, nutritional and metabolic diseases complicating childbirth; E05.80 Other thyrotoxicosis without thyrotoxic crisis or storm; O69.2XX0 Labor and delivery complicated by other cord entanglement, with compression, not applicable or unspecified; O69.1XX0 Labor and delivery complicated by cord around neck, with compression, not applicable or unspecified; O70.1 Second degree perineal laceration during delivery; O90.81 Anemia of the puerperium; D64.9 Anemia, unspecified; Z3A.39 39 weeks gestation of pregnancy; Z37.0 Single live birth
CPT/HCPCS: 59025; 59050; 85025; 85027; 86850; 86900; 86901; 99218; J7120; 90686; A4216; G0378; J2405

== ENCOUNTER 2021-12-29 10:35 | Outpatient (CLI) | payer BC, SELFPAY | END 2021-12-29 23:59 | disposition home or self-care (01) | PROVIDERS: Visit Provider Obstetrics & Gynecology | DX: N96 Recurrent pregnancy loss (principal) | CPT/HCPCS: 36415 ==

== ENCOUNTER 2022-01-24 14:29 | Outpatient (CLI) | payer BC, SELFPAY ==
[2022-01-24 15:33] LABS: T3 Total - Triiodothyronine 1.13 ng/mL (0.6-1.81); Vitamin D,25 Hydroxy 20.4 ng/mL
[2022-01-24 15:39] LABS: AST(SGOT) 9 U/L (15-37); Alanine Aminotransfer ALT/SGPT 19 U/L (13-56); Alkaline Phosphatase 66 U/L (45-117); Bilirubin, Direct 0.08 mg/dL (0.00-0.30); Free T3 2.8 pg/mL (2.18-3.98); Globulin 4.4 g/dL (2.2-4.2); Protein, Total 8.4 g/dL (6.4-8.2); T4 Free Direct 1.17 ng/dL (0.76-1.46); Thyroid Stim Hormone (TSH) 0.33 uIU/mL (0.358-3.74)
[2022-01-24 15:58] LABS: Hemoglobin A1c 4.7 % (3.8-5.6)
[2022-01-31 18:58] LABS: T3 Reverse 17.9 ng/dL (9.2-24.1)
== END 2022-01-24 23:59 | disposition home or self-care (01) ==
LOC: WOBLAB 14:30
PROVIDERS: Visit Provider Obstetrics & Gynecology
DX: E55.9 Vitamin D deficiency, unspecified (principal); N96 Recurrent pregnancy loss; E03.9 Hypothyroidism, unspecified; Z13.1 Encounter for screening for diabetes mellitus
CPT/HCPCS: 36415; 80076; 82306; 83036; 84439; 84443; 84480; 84481; 84482

== ENCOUNTER → 2022-04-11 | Outpatient (CLI) | payer BC, SELFPAY | END | disposition home or self-care (01) | PROVIDERS: Visit Provider Obstetrics & Gynecology | DX: N96 Recurrent pregnancy loss (principal); N91.1 Secondary amenorrhea | CPT/HCPCS: 36415 ==

== ENCOUNTER → 2022-06-13 | Outpatient (CLI) | payer BC, SELFPAY ==
[2022-06-13 19:33] LABS: hCG Titer Quant., Serum 12 mIU/mL (1-3)
== END | disposition home or self-care (01) ==
PROVIDERS: Visit Provider Obstetrics & Gynecology
DX: N96 Recurrent pregnancy loss (principal)
CPT/HCPCS: 36415; 84702

== ENCOUNTER → 2022-06-15 | Outpatient (CLI) | payer BC, SELFPAY ==
[2022-06-15 14:46] LABS: hCG Titer Quant., Serum 3 mIU/mL (1-3)
== END | disposition home or self-care (01) ==
LOC: WOBLAB 13:12
PROVIDERS: Visit Provider Student in an Organized Health Care Education/Training Program
DX: N96 Recurrent pregnancy loss (principal)
CPT/HCPCS: 36415; 84702

== ENCOUNTER → 2022-09-18 | Outpatient (CLI) | payer BC, SELFPAY ==
[2022-09-18 10:04] LABS: Absolute Lymphocyte Count 1.31 X10^3/uL (0.83-4.51); Absolute Neutrophil Count 3.9 X10^3/uL (2.0-7.7); Basophil# 0.03 X10^3/uL; Basophil% 0.5 % (0-1); Eosinophil# 0.12 X10^3/uL; Hematocrit 40.6 % (37-47); Hemoglobin 14.1 g/dL (12.0-15.0); Lymphocyte # 1.31 X10^3/ul (0.83-4.51); Lymphocyte % 21.8 % (19-41); Mean Corp Hgb Conc 34.7 g/dL (32-36); Mean Corpuscular Hgb 30.9 pg (27.0-32.0); Mean Platelet Vol. 8.7 fl (6.2-12.0); Monocyte# 0.59 X10^3/uL; Monocyte% 9.8 % (0-10); NRBC Flagged by Analyzer 0 % (0-5); Neutrophil # 3.93 X10^3/uL (2.7-7.7); Neutrophil % 65.4 % (47-70); Platelet Count 264 K/mm3 (150-450); RBC Distribution Width CV 12.5 % (11.6-14.6); RBC Distribution Width SD 40.9 fl (35.1-43.9); Red Blood Count 4.56 M/mm3 (4.2-5.4)
[2022-09-18 11:09] LABS: HIV - WCH Non-Reactive (Nonreactive); Hepatitis B Surface Antigen Non-Reactive (Nonreactive); Hepatitis C Antibody Non-Reactive (Nonreactive); Rubella IgG Reactive (Nonreactive); Syphilis Antibodies Non-reactive
[2022-09-19 18:07] LABS: V-Zoster IgG (Immunity) 645 index (Immune >165)
[2022-09-19 22:06] LABS: Chlamydia By Nucleic Acid AMP Negative (Negative)
[2022-09-21 15:45] LABS: Gonococcus By Nucleic Acid AMP Negative (Negative)
[2022-09-23 17:31] LABS: HPV Reflexed? NOT INDICATED
== END | disposition home or self-care (01) ==
LOC: WOBLAB 09:38
PROVIDERS: Visit Provider Student in an Organized Health Care Education/Training Program
DX: Z34.81 Encounter for supervision of other normal pregnancy, first trimester (principal)
CPT/HCPCS: 36415; 85025; 86703; 86762; 86780; 86787; 86803; 87086; 87088; 87340; 87491; 87591; 88175; G0145

== ENCOUNTER 2022-11-28 11:50 | Outpatient (CLI) | payer BC, SELFPAY | END 2022-11-28 23:59 | disposition home or self-care (01) | LOC: WOBLAB 11:52 | PROVIDERS: Visit Provider Student in an Organized Health Care Education/Training Program | DX: Z00.00 Encounter for general adult medical examination without abnormal findings (principal) | CPT/HCPCS: 36415 ==

== ENCOUNTER → 2023-01-12 | Outpatient (CLI) | payer BC, SELFPAY ==
[2023-01-12 14:20] LABS: Absolute Lymphocyte Count 1.39 X10^3/uL (0.83-4.51); Absolute Neutrophil Count 7.9 X10^3/uL (2.0-7.7); Basophil# 0.03 X10^3/uL; Basophil% 0.3 % (0-1); Eosinophil# 0.08 X10^3/uL; Eosinophils% 0.8 % (0-5); Hematocrit 34.1 % (37-47); Lymphocyte # 1.39 X10^3/ul (0.83-4.51); Lymphocyte % 13.3 % (19-41); Mean Corp Hgb Conc 32.3 g/dL (32-36); Mean Corpuscular Hgb 29.8 pg (27.0-32.0); Mean Corpuscular Volume 92.4 fL (81-99); Mean Platelet Vol. 9.3 fl (6.2-12.0); Monocyte# 0.89 X10^3/uL; Monocyte% 8.5 % (0-10); NRBC Flagged by Analyzer 0 % (0-5); Neutrophil % 75.6 % (47-70); Platelet Count 237 K/mm3 (150-450); RBC Distribution Width CV 13.3 % (11.6-14.6); RBC Distribution Width SD 44.3 fl (35.1-43.9); Red Blood Count 3.69 M/mm3 (4.2-5.4); White Blood Count 10.5 K/mm3 (4.4-11.0)
[2023-01-12 14:27] LABS: Glucose Challenge Gest 1H 50g 94 mg/dL (70-140)
== END | disposition home or self-care (01) ==
LOC: WOBLAB 13:13
PROVIDERS: Visit Provider Student in an Organized Health Care Education/Training Program
DX: Z34.82 Encounter for supervision of other normal pregnancy, second trimester (principal)
CPT/HCPCS: 36415; 82950; 85025

== ENCOUNTER → 2023-03-12 | Outpatient (CLI) | payer BC, SELFPAY | END | disposition home or self-care (01) | LOC: LABSPEC 13:23 | PROVIDERS: Referring Provider Nurse Practitioner; Visit Provider Nurse Practitioner | DX: Z36.85 Encounter for antenatal screening for Streptococcus B (principal) | CPT/HCPCS: 87081 ==

== ENCOUNTER 2023-07-05 14:36 | Emergency (ER) | payer BC, SELFPAY ==
[2023-07-05 14:38] VITALS: BP 126/90; PULSE 76; RESP 18; TEMP 36.2; O2SAT 100; BMI 26.3
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
--- NOTE | 2023-07-05 15:03 | ED.RN ---
THIS RN CALLED PT JOZEF VAUGHN PER PT REQUEST. RODERICK AT [phone]. AWARE PT IS AT [facility] ED
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
--- NOTE | 2023-07-06 18:17 | CM.ED ---
Social Work SW contacted patient to follow up regarding safety plan completed in ED 07/05/23. Patient was agreeable to speak with SW and reports overall improved mood and decrease in SI. Patient explained her [id number]-fk-hxo and convinced her to try formula instead of continuing to breast feed, and patient's son responded well to that change. Patient states her infant has been less tearful, positively impacting patient's overall mood. SW provided emotional support and encouraged patient to contact [facility] or return to [facility] ED if SI or safety concerns increase. Patient voiced understanding and has not other needs at this time. Shoshana Huynh MACHINED PARTS QUALITY INSPECTOR, [facility]
== END 2023-07-05 16:40 | disposition home or self-care (01) ==
PROVIDERS: Emergency Provider Emergency Medicine; Visit Provider Emergency Medicine
DX: F53.0 Postpartum depression (principal)
CPT/HCPCS: 99283

== ENCOUNTER → 2024-10-28 | Outpatient (CLI) | payer BC, SELFPAY ==
[2024-10-28 12:16] LABS: Absolute Lymphocyte Count 1.46 X10^3/uL (0.83-4.51); Absolute Neutrophil Count 2.8 X10^3/uL (2.0-7.7); Basophil# 0.06 X10^3/uL; Basophil% 1.2 % (0-1); Eosinophil# 0.26 X10^3/uL; Hematocrit 41.2 % (37-47); Hemoglobin 13.7 g/dL (12.0-15.0); Lymphocyte # 1.46 X10^3/ul (0.83-4.51); Lymphocyte % 28.3 % (19-41); Mean Corp Hgb Conc 33.3 g/dL (32-36); Mean Corpuscular Hgb 30.6 pg (27.0-32.0); Mean Platelet Vol. 9.2 fl (6.2-12.0); Monocyte# 0.54 X10^3/uL; Monocyte% 10.5 % (0-10); NRBC Flagged by Analyzer 0 % (0-5); Neutrophil # 2.83 X10^3/uL (2.7-7.7); Neutrophil % 54.8 % (47-70); Platelet Count 289 K/mm3 (150-450); RBC Distribution Width CV 12.8 % (11.6-14.6); RBC Distribution Width SD 43.6 fl (35.1-43.9); Red Blood Count 4.48 M/mm3 (4.2-5.4); White Blood Count 5.2 K/mm3 (4.4-11.0)
[2024-10-28 13:31] LABS: ALB/GLOB Ratio 0.9 RATIO (0.9-2.4); AST(SGOT) 17 U/L (15-37); Alanine Aminotransfer ALT/SGPT 24 U/L (13-56); Albumin, Serum 3.7 g/dL (3.2-5.0); Alkaline Phosphatase 80 U/L (45-117); Anion Gap 8 (5-15); BUN 17 mg/dL (7-18); BUN/Creat Ratio 22.5 RATIO (10-20); Calcium,Total 9.7 mg/dL (8.5-10.1); Chloride 106 mmol/L (98-107); Cholesterol 245 mg/dL (200); Creatinine, Serum 0.76 mg/dL (0.55-1.02); EST Glomerular Filtration Rate 96 mL/min (>60); Est Glom Filt Rate - Afr Amer 116 mL/min (>60); Globulin 4.2 g/dL (2.2-4.2); Glucose 70 mg/dL (74-106); High Density Lipoprotein 70 mg/dL; Potassium 3.9 mmol/L (3.5-5.1); Protein, Total 7.9 g/dL (6.4-8.2); Sodium Level 139 mmol/L (136-145); T4 Free Direct 1.01 ng/dL (0.76-1.46); Thyroid Stim Hormone (TSH) 0.456 uIU/mL (0.358-3.740); Triglycerides 61 mg/dL; Very Low Density Lipoprotein 12 mg/dL (5-40)
== END | disposition home or self-care (01) ==
LOC: BFHLAB 08:38
PROVIDERS: PCP Nurse Practitioner Family; Referring Provider Nurse Practitioner Family; Visit Provider Nurse Practitioner Family
DX: Z00.01 Encounter for general adult medical examination with abnormal findings (principal); R63.5 Abnormal weight gain
CPT/HCPCS: 36415; 80053; 80061; 82533; 84439; 84443; 85025

== ENCOUNTER → 2025-03-27 | Outpatient (CLI) | payer BC, SELFPAY | END | disposition home or self-care (01) | LOC: LABSPEC 14:25 | PROVIDERS: PCP Nurse Practitioner Family; Referring Provider Obstetrics & Gynecology; Visit Provider Obstetrics & Gynecology | DX: Z12.4 Encounter for screening for malignant neoplasm of cervix (principal) | CPT/HCPCS: 87624; 88175; G0145 ==